=== PATIENT | male | born 1940 | race Caucasian/White ===

== ENCOUNTER 2017-11-17 08:37 | Outpatient (CLI) | payer MEDICARE ==
[~2017-11-17] VITALS: Ht 177.8 cm; Wt 90.7 kg
[~2017-11-17 08:37] MED LIST: ALLO100T PO; AMIO200T57 PO; ASPI-1009 PO; CALC600T2 PF; CLOP75TA33 PO; HYDR-3972 PO; HYDR12.522 PO; LOP25T PO; MULT-1085 PO; PRAV40TA65 PO; QUIN20TA18 PO; SALM1CAP6 PO; [UNRECOGNIZED DRUG - CODE]
[2017-11-17 09:10] LABS: TOTAL HEMOGLOBIN 13.8 G/dl (14.0-18.0)
[2017-11-17] MEDS ORDERED: albuterol 2.5 MG/3 ML nebule ONE (09:42)
[2017-11-17] MEDS ORDERED: albuterol 2.5 MG/3 ML nebule NEB ONE (09:55)
== END 2017-11-17 23:59 | disposition home or self-care (01) ==
LOC: RT 08:37
PROVIDERS: ATTEND Internal Medicine Cardiovascular Disease
DX: J44.9 Chronic obstructive pulmonary disease, unspecified (principal); I10 Essential (primary) hypertension; Z79.899 Other long term (current) drug therapy; R06.02 Shortness of breath; F17.210 Nicotine dependence, cigarettes, uncomplicated
CPT/HCPCS: 71046; 85018; 94060; 94640; 94727; 94729; 94760

== ENCOUNTER 2018-07-04 15:23 | Outpatient (CLI) | payer MEDICARE ==
[~2018-07-04 15:23] MED LIST changes: +AMIO200T40 PO; -AMIO200T57 PO
== END 2018-07-04 23:59 | disposition home or self-care (01) ==
LOC: CARD DIAG 15:23
PROVIDERS: ATTEND Internal Medicine Cardiovascular Disease
DX: I08.1 Rheumatic disorders of both mitral and tricuspid valves (principal); I10 Essential (primary) hypertension; F10.10 Alcohol abuse, uncomplicated; Z87.891 Personal history of nicotine dependence
CPT/HCPCS: 93306

== ENCOUNTER 2018-08-03 08:26 | Outpatient (CLI) | payer MEDICARE ==
[~2018-08-03] VITALS: Ht 177.8 cm; Wt 89.4 kg
[2018-08-03 09:20] LABS: TOTAL HEMOGLOBIN 17.6 G/dl (14.0-18.0)
[2018-08-03] MEDS ORDERED: albuterol 2.5 MG/3 ML nebule NEB PRN (09:45)
== END 2018-08-03 23:59 | disposition home or self-care (01) ==
LOC: RT 08:26
PROVIDERS: ATTEND Internal Medicine Cardiovascular Disease
DX: R94.2 Abnormal results of pulmonary function studies (principal); R06.02 Shortness of breath; M47.814 Spondylosis without myelopathy or radiculopathy, thoracic region; M85.88 Other specified disorders of bone density and structure, other site; F17.210 Nicotine dependence, cigarettes, uncomplicated; I10 Essential (primary) hypertension; Z79.899 Other long term (current) drug therapy; Z96.652 Presence of left artificial knee joint; Z95.1 Presence of aortocoronary bypass graft
CPT/HCPCS: 71046; 85018; 94060; 94727; 94729; 94760

== ENCOUNTER 2019-02-27 08:38 | Inpatient (IN) | payer MEDICARE ==
[2019-02-20 14:57] LABS: BASOPHILS % (AUTO) 0.7 % (0-1); EOSINOPHILS # (AUTO) 0.6 X10'3 (0-0.9); EOSINOPHILS % (AUTO) 8.7 % (0-6); LYMPHOCYTES % (AUTO) 30.5 % (21-51); MEAN CORPUSCULAR HEMOGLOBIN 33.4 PG (27.0-31.0); MEAN CORPUSCULAR HGB CONC 34.6 g/dL (33.0-36.5); MEAN CORPUSCULAR VOLUME 96.5 FL (78-98); MEAN PLATELET VOLUME 8.1 FL (7.4-10.4); MONOCYTES # (AUTO) 0.6 X10'3 (0-0.9); MONOCYTES % (AUTO) 9.7 % (2-12); NEUTROPHILS # (AUTO) 3.3 X10'3 (1.8-7.7); NEUTROPHILS % (AUTO) 50.4 % (42-75); PRE OP HEMATOCRIT 45.2 % (42.0-52.0); PRE OP HEMOGLOBIN 15.7 g/dL (14.0-17.9); PRE OP PLATELET COUNT 187 X10'3 (140-440); RED BLOOD COUNT 4.69 X10'6 (4.70-6.10)
[2019-02-20 15:10] LABS: PRE OP PROTIME 10.9 SECONDS (9.0-12.0)
[2019-02-20 15:13] LABS: ALBUMIN 4.3 G/DL (3.4-5.0); ALBUMIN/GLOBULIN RATIO 1.2 (1.1-1.5); ALKALINE PHOSPHATASE 57 IU/L (46-116); BLOOD UREA NITROGEN 17 MG/DL (7-18); BUN/CREATININE RATIO 12.5 (5.4-32.0); CHLORIDE 107 MMOL/L (99-107); CREATININE 1.36 MG/DL (0.60-1.10); PRE OP ALT 33 U/L (30-65); PRE OP ANION GAP 9 (8-16); PRE OP AST 27 U/L (10-37); PRE OP BILIRUB, TOTAL 0.7 MG/DL (0.0-1.0); PRE OP GLUCOSE 98 MG/DL (70-104); PRE OP POTASSIUM 4.2 MMOL/L (3.4-5.1); PRE OP SODIUM 144 MMOL/L (135-145); TOTAL CARBON DIOXIDE 27.9 MMOL/L (24-32); eGFR 50 ML/MIN
[~2019-02-27] VITALS: Ht 177.8 cm; Wt 93.1 kg
[2019-02-27] VITALS (18 sets, daily range): BP systolic 88–156; BP diastolic 59–96
[~2019-02-27 08:38] MED LIST changes: -AMIO200T40 PO; +AMIO200T61 PO; +DOCUMENT DATE & TIME OF BETA-BLOCKER PO ONE; -HYDR-3972 PO; -HYDR12.522 PO; -PRAV40TA65 PO; +PRAV80TA3 PO; +QUIN10TA16 PO; -QUIN20TA18 PO; +ceFAZolin 1000mg inj ONE; +cefazolin/dext.iso 2gm/50ml 50 ML IV ONE; +famotidine 20mg tablet PO ONE; +ringers solution, lacted 1,000 ML IV SCH; +vancomycin inj 1,500 MG in normal saline 300ml IV soln IV ONE
[2019-02-27] MEDS ORDERED: FLUT1BLS4 INH (09:25)
[2019-02-27] MEDS ORDERED: ATRNS NAS (09:25)
[2019-02-27] MEDS ORDERED: tranexamic acid inj. 1,000 MG in normal saline 100 ML IV ONE (09:56)
[2019-02-27] MEDS ORDERED: tetracaine 1% (10mg/ml) pres. free inj. ONE (10:32)
[2019-02-27] MEDS ORDERED: fentaNYL/PF 50MCG/1 ML 2ML syringe ONE (10:34)
[2019-02-27] MEDS ORDERED: MIDAZolam 5mg/5ml vial ONE ×2 (10:35→12:00)
[2019-02-27] MEDS ORDERED: diphenhydrAMINE 50 mg/ml inj ONE (10:52)
[2019-02-27] MEDS ORDERED: phenylephrine 10mg/ml inj. ONE (11:04)
[2019-02-27] MEDS ORDERED: dexamethasone sod phosphate 4mg/ml inj. ONE (11:10)
[2019-02-27] MEDS ORDERED: ringers solution, lacted 1,000 ML IV SCH (11:29)
[2019-02-27] MEDS ORDERED: labetalol 20mg/4ml (5mg/ml) syringe IV PRN (11:30)
[2019-02-27] MEDS ORDERED: hydrALAZINE 20mg/ml inj. IV PRN (11:30)
[2019-02-27] MEDS ORDERED: morphine 4 MG/ML inj SYRINge IV PRN ×2 (11:30)
[2019-02-27] MEDS ORDERED: fentaNYL/PF 50MCG/1 ML 2ML syringe IV PRN ×2 (11:30)
[2019-02-27] MEDS ORDERED: ondansetron/PF 4mg/2ml inj IV PRN ×3 (11:30→13:05)
[2019-02-27] MEDS ORDERED: diphenhydrAMINE 50 mg/ml inj IV PRN (11:35)
[2019-02-27] MEDS ORDERED: albumin (Human) 5% 250ml 250 ML IV ONE ×2 (12:10)
--- NOTE | 2019-02-27 12:55 | NUR ---
Received from OR via , accompanied by Anesthesiologist DR BARNES and report given by Anesthesiolgist. AWAKENS TO VOICE. VITALS STABLE. DRESSING DI. GAEL APIN. SENSATION AT THE HIPS. WHITESIDE WITH CLEAR URINE.
[2019-02-27] MEDS ORDERED: magnesium hydroxide 30ml (MOM) UD suspension PO PRN (13:05)
[2019-02-27] MEDS ORDERED: diphenhydrAMINE 25mg capsule PO PRN (13:05)
[2019-02-27] MEDS ORDERED: bisacodyl 10mg suppository rectal RC PRN (13:05)
--- NOTE | 2019-02-27 13:55 | NUR ---
Report called to receiving nurse. Transferred via BED Belongings . Special Issues communicated to receiving nurse.AWAKE AND ORIENTED. VITALS STABLE. DRESSING DI. GAEL PAIN. TO ORTHO RM 4012B AT THIS TIME.
[2019-02-27] MEDS: diphenhydrAMINE 25mg capsule PO PRN (16:47)
[2019-02-27] MEDS: ceFAZolin 1GM/D5W- ADD-VANTAGE 50 ML IV SCH (16:49)
[2019-02-27] MEDS: potassium Cl 20mEq in NS 1,000 ML IV SCH (16:49)
--- NOTE | 2019-02-27 18:00 | NUR ---
Uriine output: 1350 mL straw yellow, no odor FC
--- NOTE | 2019-02-27 18:38 | NUR ---
Problems reprioritized. Patient report given, questions answered & plan of care reviewed with MONSE Malone.
[2019-02-27] MEDS ORDERED: vancomycin/NS 1 GM ADD-VANTAGE 250 ML IV SCH (20:00)
[2019-02-27] MEDS: metoprolol tartrate 25mg tablet PO SCH (20:54)
[2019-02-27] MEDS: sennosides 8.6mg tablet PO SCH (20:54)
[2019-02-27] MEDS: aspirin 81mg tablet.DR PO SCH (20:54)
[2019-02-28] MEDS: ceFAZolin 1GM/D5W- ADD-VANTAGE 50 ML IV SCH (00:30)
[2019-02-28] MEDS: traMADol 50MG tablet PO PRN ×3 (00:31→17:29)
[2019-02-28 02:00] VITALS: BP 108/60
[2019-02-28] MEDS: potassium Cl 20mEq in NS 1,000 ML IV SCH ×2 (04:52→08:05)
[2019-02-28 05:47] LABS: BASOPHILS % (AUTO) 0.2 % (0-1); EOSINOPHILS % (AUTO) 0 % (0-6); HEMATOCRIT 35.5 % (42.0-52.0); HEMOGLOBIN 12.3 g/dl (14.0-17.9); LYMPHOCYTES # (AUTO) 1.1 X10'3 (1.1-4.8); LYMPHOCYTES % (AUTO) 11.6 % (21-51); MEAN CORPUSCULAR HEMOGLOBIN 33.2 PG (27.0-31.0); MEAN CORPUSCULAR HGB CONC 34.5 g/dL (33.0-36.5); MEAN CORPUSCULAR VOLUME 96.2 FL (78-98); MEAN PLATELET VOLUME 8.2 FL (7.4-10.4); MONOCYTES # (AUTO) 1.1 X10'3 (0-0.9); MONOCYTES % (AUTO) 11.4 % (2-12); NEUTROPHILS # (AUTO) 7.1 X10'3 (1.8-7.7); NEUTROPHILS % (AUTO) 76.8 % (42-75); PLATELET COUNT 166 X10'3 (140-440); RED BLOOD COUNT 3.69 X10'6 (4.70-6.10); RED CELL DISTRIBUTION WIDTH 13.7 % (11.5-14.5); WHITE BLOOD COUNT 9.3 X10'3 (4.5-11.0)
[2019-02-28 06:00] VITALS: BP 112/65
--- NOTE | 2019-02-28 06:15 | NUR ---
REPORT GIVEN TO MONSE ROSE.
[2019-02-28 06:45] LABS: ALANINE AMINOTRANSFERASE 27 U/L (12-78); ALBUMIN 3.6 G/DL (3.4-5.0); ALBUMIN/GLOBULIN RATIO 1.2 (1.1-1.5); ALKALINE PHOSPHATASE 33 IU/L (46-116); ANION GAP 14 (8-16); ASPARTATE AMINO TRANSFERASE 31 U/L (10-37); BILIRUBIN,TOTAL 0.7 MG/DL (0.1-1.0); BLOOD UREA NITROGEN 24 MG/DL (7-18); BUN/CREATININE RATIO 14.4 (5.4-32.0); CALCIUM 7.9 MG/DL (8.5-10.1); CHLORIDE 101 MMOL/L (99-107); CREATININE 1.67 MG/DL (0.60-1.10); GLUCOSE 133 MG/DL (70-104); POTASSIUM 4.5 MMOL/L (3.5-5.1); SODIUM 135 MMOL/L (135-145); TOTAL CARBON DIOXIDE 20.5 MMOL/L (24-32); TOTAL PROTEIN 6.6 G/DL (6.4-8.2); eGFR 40 ML/MIN
[2019-02-28 07:15] VITALS: BP 116/68
[2019-02-28] MEDS: amiodarone 200mg tablet PO SCH (08:20)
[2019-02-28] MEDS: lisinopril 10 MG tablet PO SCH (08:20)
[2019-02-28] MEDS: metoprolol tartrate 25mg tablet PO SCH ×2 (08:21→19:59)
[2019-02-28] MEDS: allopurinol 100mg tablet PO SCH (08:21)
[2019-02-28] MEDS: clopidogrel 75mg tablet PO SCH (08:21)
[2019-02-28] MEDS: diphenhydrAMINE 25mg capsule PO PRN ×3 (09:24→17:28)
[2019-02-28 10:00] VITALS: BP 102/51
--- NOTE | 2019-02-28 11:21 | NUR ---
Procedure explained to patient. While inserting catheter there was a small blood clots in urine. Urine drained freely 1100mL. Addendum: 02/28/19 at 1122 by Charla PERALTA Amended: Links added.
--- NOTE | 2019-02-28 11:35 | NUR ---
Student documentation:I have reviewed and agree with all interventions, assessments performed and documented by Charla Ornelas. Student Medication Administration:For this medication-pass time frame 7411-1000, all medications were reviewed, administered and documented per hospital policy by Charla Ornelas.
[2019-02-28] MEDS ORDERED: diphenhydrAMINE 25mg capsule PO ONE (14:00)
[2019-02-28 18:00] VITALS: BP 121/68
--- NOTE | 2019-02-28 18:45 | NUR ---
Patient in room ORTHO 4012. I have received report from Sara SHEA and had the opportunity to ask questions and assume patient care.
[2019-02-28] MEDS: sennosides 8.6mg tablet PO SCH (19:59)
[2019-02-28 20:00] VITALS: BP 117/72
[2019-02-28] MEDS: aspirin 81mg tablet.DR PO SCH (20:00)
[2019-03-01] MEDS: traMADol 50MG tablet PO PRN ×2 (04:55→10:17)
[2019-03-01 06:00] VITALS: BP 162/93
[2019-03-01 06:11] LABS: BASOPHILS % (AUTO) 0.3 % (0-1); EOSINOPHILS % (AUTO) 0.6 % (0-6); HEMATOCRIT 36.5 % (42.0-52.0); HEMOGLOBIN 12.7 g/dl (14.0-17.9); LYMPHOCYTES # (AUTO) 1.2 X10'3 (1.1-4.8); LYMPHOCYTES % (AUTO) 14.2 % (21-51); MEAN CORPUSCULAR HEMOGLOBIN 33.4 PG (27.0-31.0); MEAN CORPUSCULAR HGB CONC 34.7 g/dL (33.0-36.5); MEAN PLATELET VOLUME 8.6 FL (7.4-10.4); MONOCYTES # (AUTO) 1.2 X10'3 (0-0.9); MONOCYTES % (AUTO) 13.7 % (2-12); NEUTROPHILS # (AUTO) 6.2 X10'3 (1.8-7.7); NEUTROPHILS % (AUTO) 71.2 % (42-75); PLATELET COUNT 184 X10'3 (140-440); WHITE BLOOD COUNT 8.6 X10'3 (4.5-11.0)
--- NOTE | 2019-03-01 06:35 | NUR ---
Problems reprioritized. Patient report given, questions answered & plan of care reviewed with Tamia SHEA.
[2019-03-01 06:49] LABS: ALANINE AMINOTRANSFERASE 29 U/L (12-78); ALBUMIN 3.9 G/DL (3.4-5.0); ALBUMIN/GLOBULIN RATIO 1.1 (1.1-1.5); ALKALINE PHOSPHATASE 39 IU/L (46-116); ANION GAP 10 (8-16); ASPARTATE AMINO TRANSFERASE 35 U/L (10-37); BILIRUBIN,TOTAL 0.7 MG/DL (0.1-1.0); BLOOD UREA NITROGEN 26 MG/DL (7-18); BUN/CREATININE RATIO 18.7 (5.4-32.0); CALCIUM 8.6 MG/DL (8.5-10.1); CHLORIDE 102 MMOL/L (99-107); CREATININE 1.39 MG/DL (0.60-1.10); GLUCOSE 117 MG/DL (70-104); SODIUM 136 MMOL/L (135-145); TOTAL CARBON DIOXIDE 23.8 MMOL/L (24-32); TOTAL PROTEIN 7.5 G/DL (6.4-8.2); eGFR 49 ML/MIN
[2019-03-01] MEDS ORDERED: TRAM50TA2 PO (08:56)
[2019-03-01] MEDS: amiodarone 200mg tablet PO SCH (08:57)
[2019-03-01] MEDS: clopidogrel 75mg tablet PO SCH (08:57)
[2019-03-01] MEDS: metoprolol tartrate 25mg tablet PO SCH (08:57)
[2019-03-01] MEDS: allopurinol 100mg tablet PO SCH (08:58)
[2019-03-01] MEDS: lisinopril 10 MG tablet PO SCH (08:58)
[2019-03-01 10:00] VITALS: BP 116/62
[2019-03-01] MEDS: potassium Cl 20mEq in NS 1,000 ML IV SCH (10:16)
--- NOTE | 2019-03-01 11:16 | NUR ---
pt d/c with instructions, understanding of instructions, and w/all belongings in wheelchair accompanied by to private vehicle to f/u w/surgeon, pt to make own appointment pt also given 2 island dressing, given 2 powder packs, tramadol called into [facility], but also given script of tramadol incase [facility] unable to fill script
--- NOTE | 2019-03-01 11:36 | NUR ---
Joint replacement consult: Pt d/c prior to RD visit. Written high protein ed w/ RD contact information mailed to pt home address. Addendum: 03/01/19 at [address] Amended: Links added.
--- NOTE | 2019-03-01 11:47 | NUR ---
Student documentation: I have reviewed all interventions, assessments performed and [facility]. [facility] Medication Administration: For this medication-pass time frame, all medication were reviewed, dispensed, administered and documented per hospital policy [facility].
== END 2019-03-01 11:20 | disposition home or self-care (01) | DRG 470 ==
LOC: PAS IN 08:38 → EDSTATUS 11:00 → ORTHO 4S 14:00
PROVIDERS: ADMIT Orthopaedic Surgery; ATTEND Orthopaedic Surgery
PROC: 0SRB06A Replacement of Left Hip Joint with Oxidized Zirconium on Polyethylene Synthetic Substitute, Uncemented, Open Approach (ICD-10-PCS; principal; 2019-02-27 10:30)
DX: M16.12 Unilateral primary osteoarthritis, left hip (principal); D62 Acute posthemorrhagic anemia; E78.5 Hyperlipidemia, unspecified; I25.10 Atherosclerotic heart disease of native coronary artery without angina pectoris; I48.91 Unspecified atrial fibrillation; Z96.653 Presence of artificial knee joint, bilateral; J44.9 Chronic obstructive pulmonary disease, unspecified; N18.3 Chronic kidney disease, stage 3 (moderate); I08.3 Combined rheumatic disorders of mitral, aortic and tricuspid valves; R33.9 Retention of urine, unspecified; I12.9 Hypertensive chronic kidney disease with stage 1 through stage 4 chronic kidney disease, or unspecified chronic kidney disease; G62.9 Polyneuropathy, unspecified; Z88.6 Allergy status to analgesic agent; Z79.899 Other long term (current) drug therapy; Z95.0 Presence of cardiac pacemaker; Z87.891 Personal history of nicotine dependence; Z95.1 Presence of aortocoronary bypass graft
CPT/HCPCS: 36415; 80053; 82948; 85025; 85610; 85730; 86885; 86900; 86901; 86920; 87081; 93005; 97110; 97116; 97162; 97530; A4618; A6258; A6402; A7000; C1758; C1776; G0378; J0690; J1100; J1200; J2250; J2370; J3010; J3370; J3480; J7120; P9045; Q0163